=== PATIENT | male | born 1990 | race Hispanic/Latino ===

== ENCOUNTER 2023-10-21 21:51 | Emergency (ER) | payer MEDICARE ==
[~2023-10-21] VITALS: Ht 175.3 cm; Wt 97.5 kg
[2023-10-21 23:25] VITALS: O2SAT 100
[2023-10-22] MEDS ORDERED: DOXYCYCLINE HY100 MG PO
[2023-10-22] MEDS ORDERED: VALTREX1000 MG PO (00:01)
[2023-10-22] MEDS ORDERED: LIDOCAINE HCL 1% LOCAL INJ 20 ML VIAL ONE (00:29)
[2023-10-22] MEDS ORDERED: AZITHROMYCIN 250 MG TAB ONE (00:29)
[2023-10-22] MEDS: AZITHROMYCIN 250 MG TAB PO ONE (00:36)
[2023-10-22] MEDS: CEFTRIAXONE 1 GM VIAL IM ONE (02:42)
== END 2023-10-22 00:45 | disposition home or self-care (01) ==
LOC: FSED 22:38
DX: N48.5 Ulcer of penis (principal); E11.9 Type 2 diabetes mellitus without complications
CPT/HCPCS: 81003; 87071; 87086; 87186; 87205; 99283; J0696; J2001